=== PATIENT | female | born 2005 | race Caucasian/White ===

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

== ENCOUNTER 2024-11-23 09:09 | Outpatient (REF) | payer MEDICAID, SELFPAY ==
[2024-11-24 15:45] LABS: Chlamydia Result Negative (Negative); GC Result Negative (Negative)
== END 2024-11-23 09:10 | disposition home or self-care (01) ==
LOC: NCHCN 09:09
PROVIDERS: PCP Internal Medicine; Visit Provider Family Medicine
DX: Z00.00 Encounter for general adult medical examination without abnormal findings (principal)
CPT/HCPCS: 87491; 87591

== ENCOUNTER 2025-04-18 14:46 | Emergency (ER) | payer MEDICAID, SELFPAY ==
[2025-04-18 14:49] VITALS: BP 131/89; PULSE 97; RESP 18; TEMP 36.8; O2SAT 97
[2025-04-18 14:53] VITALS: BP 131/89; PULSE 97; RESP 18; TEMP 36.8; O2SAT 97
--- NOTE | 2025-04-18 15:07 | ED.GENADUL_ITS ---
Discharge Plan Disposition Patient Disposition: Home Condition: Stable Discharge Details Clinical Impression: Acute left otitis media Primary Care Provider: Sarah Cedillo ED Provider: Humaira Winn Home Meds and New Rx's Prescriptions: New amoxicillin 875 mg tablet 875 mg PO BID 7 Days Qty: 14 0RF No Action norgestimate-ethinyl estradiol [Estarylla] 0.25-35 mg-mcg tablet 1 tab PO DAILY nyofaruy-iopifqfau-UJ 3.5-10,000-1 mg/mL-unit/mL-% drops,suspension 4 drp otic (ear) BID Patient Comments: INSTILL FOUR DROPS IN THE RIGHT EAR TWO TIMES A DAY FOR 7 DAYS Discharge Instructions Instructions: Ear Infection ED Additional Instructions: Please continue using the prescribed eardrops. Use dxic-tpl-vqmpcol Tylenol and ibuprofen also for pain relief. I sent a prescription for antibiotics to your pharmacy. Take this as prescribed. I would also recommend that you follow-up on an outpatient basis with the specialist in the near future. In the meantime if you do get worse or develop any concerning symptoms please return to the emergency department immediately for further evaluation. Discharge Data Discharge Date/Time-TO BE ENTERED AT DEPARTURE: 04/18/25 15:14 HPI General Date/Time Provider Initiated Documentation: 04/18/25 14:48 . HPI Narrative: Patient is a 1-year-old female history of recurrent ear infections comes emergency department for left-sided ear pain. Reports that over a week ago she was diagnosed with right-sided otitis externa at an urgent care. Reports that she was prescribed antibiotic eyedrops and eventually her right ear pain resolved. Reports that her left ear started her past couple days so she has started using the eardrops but it is not helping at all. Reports she is taking tnfv-esm-ytshrpa Tylenol and ibuprofen which has not helped. Reports because she has recurrent ear infections she has been very careful about getting water in her ears. Reports she has not had any fever with this. Reports that when she went to the urgent care for the right ear she was told that her ear has had some decreased. Reports otherwise that she feels at baseline health. Denies fevers or chills. Denies chest pain or shortness of breath. Related Data Home Medications ?Medication ?Instructions ?Recorded ?Confirmed norgestimate 0.25 mg-ethinyl 1 tab PO DAILY 03/28/22 0 04/18/25 estradiol 0.035 mg tablet (Estarylla) amoxicillin 875 mg tablet 875 mg PO BID 7 days #14 tab s 04/18/25 ntvffspy-ggifobxfl-nsnwckcyo 3.5 4 drp otic (ear) BID 04/18/25 04/18/25 mg-10,000 unit/mL-1 % ear drops,susp Previous Rx's ?Medication ?Instructions ?Recorded amoxicillin 875 mg tablet 875 mg PO BID 7 days #14 tab s 04/18/25 Allergies Allergy/AdvReac Type Severity Reaction Status Date / Time No Known Allergies Allergy Verified 04/18/25 14:52 General Stated Complaint: EarProblem RIMA: 4 Review of Systems Narrative: Review of systems are negative except as mentioned. Exam Narrative Exam Narrative: General appearance: The patient is alert, has no immediate need for airway protection and no signs of toxicity. Ears: The right tympanic membrane is nonerythematous and nonbulging. The tympanic canal does not drainage. She has no lifting of the pinna bilaterally. She has no mastoid process tenderness to palpation bilaterally either. The left tympanic membrane is erythematous bulging and dull. The patent canal had some fluid in it which could be from the eardrop the patient has been using. Neck: No significant cervical lymphadenopathy is palpated.. Respiratory: There are no retractions. Lungs are clear to auscultation. Cardiovascular: Regular in rate and rhythm. Radial pulses are intact and equal. Gastrointestinal: The abdomen is soft and nondistended with normal bowel sounds. Nontender to palpation throughout. Neurological: The patient is alert, awake and oriented x 3. Course Vital Signs Vital signs: Vital Signs Temperature 36.8 C 04/18/25 14:49 Pulse 97 H 04/18/25 14:49 Respiratory Rate 18 04/18/25 14:49 Blood Pressure 131/89 04/18/25 14:49 Pulse Oximetry 97 04/18/25 14:49 Temperature 36.8 C 04/18/25 14:53 Pulse 97 H 04/18/25 14:53 Respiratory Rate 18 04/18/25 14:53 Blood Pressure 131/89 04/18/25 14:53 Pulse Oximetry 97 04/18/25 14:53 Medical Decision Making The patient's left tympanic canal does look boggy however the patient had just applied the eardrop ear today. The ear canal is patent and I do not appreciate any purulent drainage. Nevertheless for this I encouraged continued use of the eardrops but because the tympanic canal is erythematous dull and bulging I told the patient of plan for adding oral antibiotics on top of her regimen. I will send a prescription to her preferred pharmacy and in the meantime she is encouraged to continue Tylenol and ibuprofen. Because of recurrent ear infections. Follow-up with outpatient basis however in the meantime I told her if she does get worse or develop any new or worsening symptoms to return to the clinic for reevaluation. PFSH All Active Problems (Updated 04/18/25 @ 15:07 by Humaira Winn DO) Acute left otitis media (Acute) Patellar tendonitis of right knee (Acute) Patellofemoral syndrome of right knee (Acute) Social History Smoking/Tobacco Use Status: Never Smoking risk assessment performed?: Yes Alcohol Intake: never Drug use: Never Substance use type: does not use Current gender identity: female
== END 2025-04-18 15:14 | disposition home or self-care (01) ==
LOC: ER 15:16
PROVIDERS: Emergency Provider Emergency Medicine; PCP Family Medicine
DX: H66.92 Otitis media, unspecified, left ear (principal)
CPT/HCPCS: 99283

== ENCOUNTER 2025-07-23 13:54 | Outpatient (REF) | payer MEDICAID, SELFPAY ==
[2025-07-23 21:14] LABS: Hemoglobin A1C 5.3 % (<5.7)
[2025-07-23 21:27] LABS: ALT 76 U/L (14-59); AST 40 U/L (15-37); Albumin 4.5 g/dL (3.4-5.0); Alkaline Phosphatase 78 U/L (46-116); Anion Gap 9.3 mmol/L (3-11); BUN 8 mg/dL (7-18); Bilirubin, Total 0.6 mg/dL (0.2-1.0); CO2 27.7 mmol/L (21.0-32.0); Calcium 9.3 mg/dL (8.5-10.1); Chloride 103 mmol/L (98-107); Cholesterol 145 mg/dL (<200); Glucose 76 mg/dL (74-106); HDL Cholesterol 38 mg/dL (>or=50); Potassium 4.5 mmol/L (3.5-5.1); Sodium 140 mmol/L (136-145); Total Protein 8.1 g/dL (6.4-8.2)
== END 2025-07-23 13:55 | disposition home or self-care (01) ==
LOC: NCHCN 13:54
PROVIDERS: PCP Family Medicine; Visit Provider Nurse Practitioner Family
DX: Z68.34 Body mass index [BMI] 34.0-34.9, adult (principal)
CPT/HCPCS: 80053; 80061; 83036

== ENCOUNTER 2025-08-04 10:30 | Outpatient (REF) | payer OTHER, MEDICAID, SELFPAY ==
--- NOTE | 2025-08-04 08:00 | PAPFT_PTH ---
PATIENT: Petty Rivero LOC: [facility]#:[id number] AGE/SX: 20/F ROOM: RE08/04/[address]: Tiffanie Arias : 2005 BED: DIS: 08/04/2025 SPEC #: [id number] RECD: 08/04/25 17:44 STATUS: FABIÁN PATRICIA #: [id number] EZEQUIEL: 08/04/25 08:[address]: Tiffanie Arias DEPT: [facility] Cytology RECD BY: Conchita Roy ENTERED: 08/04/25 17:44 SP TYPE: PAPFT OTHR DR: Sarah Cedillo Tissues: 1 - CX/ENDOCX FOR PAP SMEARS Procedures: PAP THIN PREP/[facility] Screening Comments: [id number]
== END 2025-08-04 10:31 | disposition home or self-care (01) ==
LOC: NCHCN 10:30
PROVIDERS: PCP Family Medicine; Visit Provider Nurse Practitioner Family
DX: Z12.4 Encounter for screening for malignant neoplasm of cervix (principal)
CPT/HCPCS: 88142